=== PATIENT | male | born 1975 | race Caucasian/White ===

== ENCOUNTER 2021-01-30 15:28 | Emergency (ER) | payer OTHER ==
[2021-01-30 15:34] VITALS: BP 170/103; PULSE 85; RESP 18; TEMP 98.4
[2021-01-30] MEDS ORDERED: KETOROLAC 15 MG/ML 1 ML VIAL IM STA (16:56)
--- NOTE | 2021-01-30 17:25 | XR ---
EXAMINATION TYPE: XR lumbar spine 2 or 3V DATE OF EXAM: 01/30/2021 COMPARISON: NONE HISTORY: Back pain TECHNIQUE: 3 views FINDINGS: Vertebra have normal alignment. Posterior elements are intact. There is spurring of the end plates. Sacroiliac joints appear intact. IMPRESSION: Minor degenerative spur formation. No fracture. No significant disc space narrowing.
--- NOTE | 2021-01-30 17:50 | ED ---
Back Pain HPI - General Chief Complaint: Back Pain/Injury Stated Complaint: Back Pain Time Seen by Provider: 01/30/21 16:17 Source: patient, RN notes reviewed Mode of arrival: ambulatory Limitations: no limitations - History of Present Illness Initial Comments: Patient is a 45-year-old male presenting to emergency Department with complaints of lower back pain has been going on for the past 2 weeks. He denies any specific injuries or trauma. He does a lot of heavy lifting at work. He states it just started becoming painful in the lower back over the past couple weeks. Getting the point where hurts to switch positions from sitting to standing or from laying down to standing up. He denies any numbness and tingling into his lower extremities, no bowel or bladder incontinence. He denies any saddle paresthesias. Denies any fevers or chills. Denies any radiating pain down into his legs. Denies any previous injuries or surgeries to his back. He has no further complaints. - Related Data Home Medications Medication Instructions Recorded Confirmed Ibuprofen [Motrin Ib] 1,200 mg PO Q8H PRN 01/30/21 01/30/21 Previous Rx's Medication Instructions Recorded Cyclobenzaprine [Flexeril] 5 mg PO TID PRN #15 tablet 01/30/21 predniSONE 50 mg PO DAILY #5 tab 01/30/21 Allergies Allergy/AdvReac Type Severity Reaction Status Date / Time No Known Allergies Allergy Verified 01/30/21 16:45 Review of Systems ROS Statement: Those systems with pertinent positive or pertinent negative responses have been documented in the HPI. ROS Other: All systems not noted in ROS Statement are negative. Past Medical History Past Medical History: No Reported History History of Any Multi-Drug Resistant Organisms: None Reported Additional Past Surgical History / Comment(s): tendon sx Past Psychological History: No Psychological Hx Reported Past Alcohol Use History: Occasional Past Drug Use History: None Reported General Exam - General Exam Comments Initial Comments: GENERAL: Patient is well-developed and well-nourished. Patient is nontoxic and in no acute distress. HEAD: Atraumatic, normocephalic. EYES: Pupils equal round and reactive to light, extraocular movements intact, sclera anicteric, conjunctiva are normal. Eyelids were unremarkable. ENT: Moist mucous membranes. NECK: Normal range of motion, supple without lymphadenopathy or JVD. LUNGS: Unlabored respirations. Breath sounds clear to auscultation bilaterally and equal. No wheezes rales or rhonchi. HEART: Regular rate and rhythm without murmurs, rubs or gallops. ABDOMEN: Soft, nontender, normoactive bowel sounds. No guarding, no rebound. No masses appreciated. MUSCULOSKELETAL: Normal extremities with adequate strength and normal range of motion, no pitting or edema. No clubbing or cyanosis. Mild tenderness to palpation of the lumbar region, lumbar paraspinals. Increased pain with lumbar extension. NEUROLOGICAL: Patient is alert and oriented x 3. Motor and sensory are also intact. Cranial nerves II through XII grossly intact. Symmetrical smile. Normal speech, normal gait. PSYCH: Normal mood, normal affect. SKIN: Warm, Dry, normal turgor, no rashes or lesions noted. Limitations: no limitations Course Vital Signs 01/30/21 15:30 Temperature 98.4 F Pulse Rate 85 Respiratory 18 Rate Blood Pressure 170/103 O2 Sat by Pulse 98 Oximetry Medical Decision Making - Medical Decision Making Patient is a 45-year-old male here with low back pain over the past couple weeks. Does a lot of heavy lifting at work. He has no alarming symptoms, no signs of cauda equina. No fevers. His exam is consistent with lumbar musculature pain. XR of lumbar region shows no acute process. I did give him some pain medicine today. Recommended muscle relaxers at night, he packs to the area. He is requesting a work note. He needs to follow-up with his primary care. He is agreeable to this plan of care and he is stable for discharge. Disposition Clinical Impression: Strain of lumbar region, Mechanical back pain Disposition: HOME SELF-CARE Condition: Stable Instructions (If sedation given, give patient instructions): Acute Low Back Pain (ED) Additional Instructions: Please return to the Emergency Department if symptoms worsen or any other concerns. Recommended trial of steroids and muscle relaxers. I recommend heat to the area and/or ice. If symptoms persist without improvement, follow up with orthopedics. Prescriptions: Cyclobenzaprine [Flexeril] 5 mg PO TID PRN #15 tablet PRN Reason: Muscle Spasm predniSONE 50 mg PO DAILY #5 tab Is patient prescribed a controlled substance at d/c from ED?: No Referrals: None,Stated [Primary Care Provider] - 1-2 days Time of Disposition: 17:49
== END 2021-01-30 18:15 | disposition home or self-care (01) ==
LOC: EC 15:28
DX: S39.012A Strain of muscle, fascia and tendon of lower back, initial encounter (principal); Z79.1 Long term (current) use of non-steroidal anti-inflammatories (NSAID); Z79.52 Long term (current) use of systemic steroids; Z79.899 Other long term (current) drug therapy; X50.0XXA Overexertion from strenuous movement or load, initial encounter; Y99.0 Civilian activity done for income or pay
CPT/HCPCS: 96372 ×2; 99283 ×2; 72100; J1885